=== PATIENT | female | born 1975 | race Caucasian/White ===

== ENCOUNTER 2020-10-09 21:22 | Emergency (ER) | payer OTHER ==
[~2020-10-09 21:22] MED LIST: BACTRIM DS TAB1 EACH PO; BENADRYL 25MG C25 MG PO; CLEOCIN HCL300 MG PO; CLINDAMYCIN HC150 MG PO; COLACE 100MG C100 MG PO; FLEXERIL 10 MG10 MG PO; HUMALOG SQ; HUMULIN SQ; IBU600 MG PO; IBUPROFEN800 MG PO; LISINOPRIL40 MG PO; LODINE CAP 300300 MG PO; NAPROSYN500 MG PO; NORCO 5-325 TA1 EACH PO; PREDNISONE10 MG PO; ZOFRAN ODT 4 MG4 MG PO
[2020-10-10] MEDS ORDERED: LODINE CAP 300300 MG PO (01:42)
== END 2020-10-10 01:55 | disposition home or self-care (01) ==
LOC: ER1 21:22
DX: M25.561 Pain in right knee (principal); E11.9 Type 2 diabetes mellitus without complications; Z88.0 Allergy status to penicillin
CPT/HCPCS: 73564; 99283